=== PATIENT | male | born 1950 | race Caucasian/White ===

== ENCOUNTER 2017-09-26 14:19 | Emergency (ER) | payer MEDICARE, OTHER ==
[2017-09-26] MEDS ORDERED: Albuterol/Ipratropium 3.0-0.5 MG/3 ML Neb Soln NEB ONE (14:44)
[2017-09-26] MEDS ORDERED: methylPREDNISolone Sodium Succinate 125 MG/2 ML SDV IVPUSH ONE (14:44)
--- NOTE | 2017-09-26 14:47 | EDM.PDOC ---
ED HPI GENERAL MEDICAL PROBLEM - General Chief Complaint: Respiratory Problem Stated Complaint: SOB Time Seen by Provider: 09/26/17 14:46 Source of Information: Reports: Patient - History of Present Illness INITIAL COMMENTS - FREE TEXT/NARRATIVE: HISTORY AND PHYSICAL: History of present illness: Patient presents with shortness of breath with exertion over the last 6 months, worsening over the last 2 weeks. 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 He has CHF and follows with Dr. Metz is in no acute distress O2 sats at 97% at rest He can walk more than 1 block without shortness of breath No fever nausea vomiting chills sweats no chest pain shortness breath headache dizziness palpitation about a urine symptoms Review of systems: As per history of present illness and below otherwise all systems reviewed and negative. Past medical history: As per history of present illness and as reviewed below otherwise noncontributory. Surgical history: As per history of present illness and as reviewed below otherwise noncontributory. Social history: No reported history of drug or alcohol abuse. Family history: As per history of present illness and as reviewed below otherwise noncontributory. Physical exam: HEENT: Atraumatic, normocephalic, pupils reactive, negative for conjunctival pallor or scleral icterus, mucous membranes moist, throat clear, neck supple, nontender, trachea midline. Lungs: Clear to auscultation, breath sounds equal bilaterally, chest nontender. Heart: S1S2, regular, negative for clicks, rubs, or JVD. Abdomen: Soft, nondistended, nontender. Negative for masses or hepatosplenomegaly. Negative for costovertebral tenderness. Pelvis: Stable nontender. Genitourinary: Deferred. Rectal: Deferred. Extremities: Atraumatic, negative for cords or calf pain. Neurovascular unremarkable. Neuro: Awake, alert, oriented. Cranial nerves II through XII unremarkable. Cerebellum unremarkable. Motor and sensory unremarkable throughout. Exam nonfocal. Diagnostics: []Lab as below EKG Chest 1 view Therapeutics: []DuoNeb Solu-Medrol 125 mg IV Lasix 20 mg by mouth daily #20 no refill He prefers to follow with his primary care and has an appointment on October 12 in [place] with his primary care Impression: []Short of breath with exertion Chronic CHF Definitive disposition and diagnosis as appropriate pending reevaluation and review of above. - Related Data Allergies Allergy/AdvReac Type Severity Reaction Status Date / Time No Known Allergies Allergy Verified 09/26/17 14:40 Home Meds: Home Meds Carvedilol 0.5 tab PO BID 10/31/16 [History] Losartan [Cozaar] 100 mg PO DAILY 09/26/17 [History] Past Medical History Cardiovascular History: Reports: Hypertension Psychiatric History: Reports: None - Infectious Disease History Infectious Disease History: Reports: Chicken Pox, Hepatitis C, Measles, Mumps Social & Family History - Family History Family Medical History: Noncontributory - Tobacco Use Smoking Status *Q: Former Smoker Used Tobacco, but Quit: Yes Month Tobacco Last Used: 1978 - Caffeine Use Caffeine Use: Reports: Soda - Recreational Drug Use Recreational Drug Use: No ED ROS GENERAL - Review of Systems Review Of Systems: ROS reveals no pertinent complaints other than HPI. ED EXAM, GENERAL - Physical Exam Exam: See Below Course - Vital Signs Last Recorded V/S: Last Vital Signs Temp 97.5 F 09/26/17 14:34 Pulse 97 09/26/17 14:34 Resp 22 H 09/26/17 14:34 BP 133/80 09/26/17 14:34 Pulse Ox - Orders/Labs/Meds Orders: Active Orders 24 hr Category Date Time Status EKG Documentation Completion [RC] STAT Care 09/26/17 14:47 Active RT Aerosol Therapy [RC] ASDIRECTED Care 09/26/17 14:45 Active CTA Chest W WO Contrast [Ang Chest] [CT] Stat Exams 09/26/17 15:52 Taken Chest 2V [CR] Stat Exams 09/26/17 14:47 Taken Labs: Laboratory Tests 09/26/17 09/26/17 09/26/17 Range/Units 15:02 15:02 15:02 WBC 6.74 (4.0-11.0) K/uL RBC 4.98 (4.50-5.90) M/uL Hgb 14.6 (13.0-17.0) g/dL Hct 44.3 (38.0-50.0) % MCV 89.0 (80.0-98.0) fL MCH 29.3 (27.0-32.0) pg MCHC 33.0 (31.0-37.0) g/dL RDW Std Deviation 47.5 (28.0-62.0) fl RDW Coeff of Glendy 15 (11.0-15.0) % Plt Count 181 (150-400) K/uL MPV 10.60 (7.40-12.00) fL Neut % (Auto) 67.3 (48.0-80.0) % Lymph % (Auto) 22.8 (16.0-40.0) % Reno % (Auto) 8.0 (0.0-15.0) % Eos % (Auto) 1.3 (0.0-7.0) % Baso % (Auto) 0.6 (0.0-1.5) % Neut # (Auto) 4.5 (1.4-5.7) K/uL Lymph # (Auto) 1.5 (0.6-2.4) K/uL Reno # (Auto) 0.5 (0.0-0.8) K/uL Eos # (Auto) 0.1 (0.0-0.7) K/uL Baso # (Auto) 0.0 (0.0-0.1) K/uL Nucleated RBC % 0.0 /100WBC Nucleated RBCs # 0 K/uL INR 1.22 H (0.86-1.11) D-Dimer, Quantitative (0.0-0.52) mg/LFEU Sodium 140 (136-146) mmol/L Potassium 4.0 (3.5-5.1) mmol/L Chloride 112 H (98-110) mmol/L Carbon Dioxide 20 L (21-31) mmol/L BUN 9 (6.0-23.0) mg/dL Creatinine 0.9 (0.6-1.5) mg/dL Est Cr Clr Drug Dosing 82.50 mL/min Estimated GFR (MDRD) > 60.0 ml/min Glucose 96 (60-110) mg/dL Calcium 9.0 (8.8-10.8) mg/dL Total Bilirubin 1.2 (0.1-1.5) mg/dL AST 26 (5-40) IU/L ALT 55 H (8-54) IU/L Alkaline Phosphatase 51 (40-150) Troponin I < 0.10 (0.0-0.29) NG/ML B-Natriuretic Peptide (<100) PG/ML Total Protein 7.2 (6.0-8.0) g/dL Albumin 4.0 (3.4-4.8) g/dL Globulin 3.2 (2.0-3.5) g/dL Albumin/Globulin Ratio 1.3 (1.3-2.8) Urine Color Urine Appearance Urine pH (5.0-8.0) Ur Specific Odell (1.001-1.035) Urine Protein (NEGATIVE) mg/dL Urine Glucose (UA) (NEGATIVE) mg/dL Urine Ketones (NEGATIVE) mg/dL Urine Occult Blood (NEGATIVE) Urine Nitrite (NEGATIVE) Urine Bilirubin (NEGATIVE) Urine Urobilinogen (<2.0) EU/dL Ur Leukocyte Esterase (NEGATIVE) Urine RBC (0-2/HPF) Urine WBC (0-5/HPF) Ur Epithelial Cells (NONE-FEW) Urine Bacteria (NEGATIVE) Urine Mucus (NONE-MOD) 09/26/17 09/26/17 09/26/17 Range/Units 15:02 15:02 17:11 WBC (4.0-11.0) K/uL RBC (4.50-5.90) M/uL Hgb (13.0-17.0) g/dL Hct (38.0-50.0) % MCV (80.0-98.0) fL MCH (27.0-32.0) pg MCHC (31.0-37.0) g/dL RDW Std Deviation (28.0-62.0) fl RDW Coeff of Glendy (11.0-15.0) % Plt Count (150-400) K/uL MPV (7.40-12.00) fL Neut % (Auto) (48.0-80.0) % Lymph % (Auto) (16.0-40.0) % Reno % (Auto) (0.0-15.0) % Eos % (Auto) (0.0-7.0) % Baso % (Auto) (0.0-1.5) % Neut # (Auto) (1.4-5.7) K/uL Lymph # (Auto) (0.6-2.4) K/uL Reno # (Auto) (0.0-0.8) K/uL Eos # (Auto) (0.0-0.7) K/uL Baso # (Auto) (0.0-0.1) K/uL Nucleated RBC % /100WBC Nucleated RBCs # K/uL INR (0.86-1.11) D-Dimer, Quantitative 2.10 H (0.0-0.52) mg/LFEU Sodium (136-146) mmol/L Potassium (3.5-5.1) mmol/L Chloride (98-110) mmol/L Carbon Dioxide (21-31) mmol/L BUN (6.0-23.0) mg/dL Creatinine (0.6-1.5) mg/dL Est Cr Clr Drug Dosing mL/min Estimated GFR (MDRD) ml/min Glucose (60-110) mg/dL Calcium (8.8-10.8) mg/dL Total Bilirubin (0.1-1.5) mg/dL AST (5-40) IU/L ALT (8-54) IU/L Alkaline Phosphatase (40-150) Troponin I (0.0-0.29) NG/ML B-Natriuretic Peptide 2956 H (<100) PG/ML Total Protein (6.0-8.0) g/dL Albumin (3.4-4.8) g/dL Globulin (2.0-3.5) g/dL Albumin/Globulin Ratio (1.3-2.8) Urine Color YELLOW Urine Appearance CLEAR Urine pH 6.0 (5.0-8.0) Ur Specific Odell 1.025 (1.001-1.035) Urine Protein 30 (NEGATIVE) mg/dL Urine Glucose (UA) NEGATIVE (NEGATIVE) mg/dL Urine Ketones NEGATIVE (NEGATIVE) mg/dL Urine Occult Blood TRACE-INTACT (NEGATIVE) Urine Nitrite NEGATIVE (NEGATIVE) Urine Bilirubin NEGATIVE (NEGATIVE) Urine Urobilinogen 0.2 (<2.0) EU/dL Ur Leukocyte Esterase NEGATIVE (NEGATIVE) Urine RBC 1-3 (0-2/HPF) Urine WBC 0-1 (0-5/HPF) Ur Epithelial Cells OCCASIONAL (NONE-FEW) Urine Bacteria FEW (NEGATIVE) Urine Mucus MODERATE (NONE-MOD) Meds: Medications Discontinued Medications Generic Name Dose Route Start Last Admin Trade Name Freq PRN Reason Stop Dose Admin Albuterol/Ipratropium 3 ml 09/26/17 14:44 09/26/17 15:36 Duoneb 3.0-0.5 Mg/3 Ml NEB 09/26/17 14:45 3 ml ONETIME ONE Administration Iopamidol 50 ml 09/26/17 16:39 09/26/17 16:44 Isovue Multipack-370 (76%) IVPUSH 09/26/17 16:40 50 ml ONETIME STA Administration Methylprednisolone Sodium Succinate 125 mg 09/26/17 14:44 09/26/17 16:03 Solu-Medrol IVPUSH 09/26/17 14:45 125 mg ONETIME ONE Administration Departure - Departure Time of Disposition: 17:27 Disposition: Home, Self-Care 01 Condition: Good Clinical Impression: CHF (congestive heart failure) - Discharge Information Referrals: PCP,None [Primary Care Provider] - Forms: ED Department Discharge Additional Instructions: Lasix 20 mg by mouth daily as prescribed Follow-up with primary care provider on October 12 as scheduled for dosing adjustment Return if symptoms persist or worsen Recommend establishing primary care care in [place] at the number below to get in with first available, he had mentioned Dr. Hermosillo or Dr. Bennett at [facility] that number provided numbers well [facility] [address] [place] [id number] [facility] [address] [place] [id number] The following information is given to patients seen in the emergency department who are being discharged to home. This information is to outline your options for follow-up care. We provide all patients seen in our emergency department with a follow-up referral. The need for follow-up, as well as the timing and circumstances, are variable depending upon the specifics of your emergency department visit. If you don't have a primary care physician on staff, we will provide you with a referral. We always advise you to contact your personal physician following an emergency department visit to inform them of the circumstance of the visit and for follow-up with them and/or the need for any referrals to a consulting specialist. The emergency department will also refer you to a specialist when appropriate. This referral assures that you have the opportunity for follow-up care with a specialist. All of these measure are taken in an effort to provide you with optimal care, which includes your follow-up. Under all circumstances we always encourage you to contact your private physician who remains a resource for coordinating your care. When calling for follow-up care, please make the office aware that this follow-up is from your recent emergency room visit. If for any reason you are refused follow-up, please contact the [facility] emergency department at and asked to speak to the emergency department charge nurse. - My Orders Last 24 Hours: My Active Orders 09/26/17 14:45 RT Aerosol Therapy [RC] ASDIRECTED 09/26/17 14:47 EKG Documentation Completion [RC] STAT Chest 2V [CR] Stat 09/26/17 15:52 CTA Chest W WO Contrast [Ang Chest] [CT] Stat - Assessment/Plan Last 24 Hours: My Active Orders 09/26/17 14:45 RT Aerosol Therapy [RC] ASDIRECTED 09/26/17 14:47 EKG Documentation Completion [RC] STAT Chest 2V [CR] Stat 09/26/17 15:52 CTA Chest W WO Contrast [Ang Chest] [CT] Stat
[2017-09-26 15:37] LABS: CHLORIDE,CL 112 mmol/L (98-110); SODIUM,NA 140 mmol/L (136-146)
[2017-09-26] MEDS ORDERED: Iopamidol 755 MG/ML 500 ML Multipack Bottle IVPUSH STA (16:39)
[2017-09-26 17:46] VITALS: BP 139/86
--- NOTE | 2017-09-27 10:14 | CR ---
EXAM DATE: 09/26/17 PATIENT'S AGE: 67 Patient: MILADIS PALMA Facility: [place], [place] Site . Site : 1950 Study: XRay Chest [id number]/27/2017 4:46:04 PM Ordering Physician: Christy Gonzalez Final Report: HISTORY: Pain, shortness of breath. FINDINGS: PA and lateral chest radiograph demonstrates cardiomegaly. Pulmonary vasculature is ill-defined. Small amount of peribronchial cuffing. No Julian B- lines. There is a small right pleural effusion. Bony structures are normal for age. IMPRESSION: 1. Cardiomegaly with ill-defined pulmonary vasculature a small amount of peribronchial cuffing suggesting pulmonary venous congestion. 2. Small right pleural effusion. Dictated by Orly Craven MD @ 09/26/2017 5:04:38 PM Dictated by: Orly Craven MD @ 09/26/2017 17:04:49 (Electronic Signature) Report Signed by Proxy. [facility]ITAL[facility]ubba
--- NOTE | 2017-09-27 10:15 | CT ---
EXAM DATE: 09/26/17 PATIENT'S AGE: 67 Patient: MILADIS PALMA Facility: [place], [place] Site . Site : 1950 Study: CT Chest Angio [id number]/27/2017 4:46:29 PM Ordering Physician: Christy Gonzalez Final Report: INDICATION: Shortness of breath, positive D-dimer. TECHNIQUE : CT scan of the chest. CTA PE protocol. IV contrast. IV Contrast: Isovue 370 50 mL Please note that all CT scans at this facility use dose modulation, iterative reconstruction and/or weight-based dosing when appropriate to reduce radiation dose to as low as reasonably achievable(ALARA). COMPARISON: No prior chest CT for comparison. FINDINGS: [employer] CT images: Cardiac silhouette is mildly enlarged. Pulmonary arteries: No focal filling defect. Thoracic aorta: Due to imaging technique and timing of contrast bolus, no significant contrast in the thoracic aorta. No aneurysmal dilatation of the ascending or descending thoracic aorta. Heart and mediastinum: Heart size significantly enlarged. Reflux of contrast into the hepatic veins, indicating component of right heart failure. Calcified coronary artery disease involving the LAD. No pericardial effusion. Chest wall and soft tissues: Unremarkable. Lungs and pleura: Moderate right pleural effusion with trace left pleural effusion. Scattered areas of ground-glass opacification in the upper and lower lobes, likely due to mild pulmonary edema. No pneumothorax or suspicious pulmonary nodularity. Thyroid gland: Within normal limits. Upper abdomen: Visualized upper abdomen unremarkable. Bones: No suspicious osseous lesion or acute abnormality. IMPRESSION: 1. No acute pulmonary embolism. 2. CT findings indicate congestive heart failure pattern with enlarged cardiac size, right greater than left pleural effusions, and reflux of contrast into the hepatic veins. Likely mild pulmonary edema. 3. Calcified coronary artery disease. Dictated by Mustapha Chaves MD @ 09/26/2017 5:12:53 PM Dictated by: Mustapha Chaves MD @ 09/26/2017 17:13:06 (Electronic Signature) Report Signed by Proxy. [facility]ITAL[facility]ubba
== END 2017-09-26 17:46 | disposition home or self-care (01) ==
LOC: MW.ED 14:19
DX: I11.0 Hypertensive heart disease with heart failure (principal); I50.9 Heart failure, unspecified; Z79.899 Other long term (current) drug therapy; Z87.891 Personal history of nicotine dependence
CPT/HCPCS: 36415; 71020; 71275; 80053; 81001; 83880; 84484; 85025; 85379; 85610; 87804; 93005; 94640; 96374; 99285; J2930; Q9967; 99284